=== PATIENT | female | born 1985 | race Caucasian/White ===

== ENCOUNTER 2018-08-12 09:44 | Inpatient (IN) ==
[2018-08-12] MEDS ORDERED: RINGER'S SOLUTION,LACTATED 1,000 ML IV ONE (09:52)
[2018-08-12] MEDS ORDERED: OXYTOCIN/DEXTROSE 5%-WATER 30 UNITS/500 ML BAG IV ONE (09:52)
[2018-08-12] MEDS ORDERED: ONDANSETRON HCL/PF 2 MG/ML VIAL IV PRN ×2 (09:52→19:02)
[2018-08-12] MEDS ORDERED: LIDOCAINE HCL 50 ML VIAL PERI PRN (09:52)
[2018-08-12] MEDS ORDERED: NALBUPHINE HCL 10 MG/ML AMPUL IV PRN ×2 (09:52)
[2018-08-12] MEDS: RINGER'S SOLUTION,LACTATED 1,000 ML IV PRN ×2 (10:17→19:38)
--- NOTE | 2018-08-12 16:22 | HP ---
Chief Complaint - Chief Complaint Date of Service: 08/12/18 Time of Service: 16:19 Chief Complaint: LOF History of Present Illness: The patient presented to the office complaining of loss of fluid. She ruptured her membranes at 0730 today. She reported clear LOF. She denied vb or ctx. Fetus is active. Medical History (Last Reviewed 04/16/18 @ 10:28 by Joyce Howard) 1, currently Onset Date: 01/22/18 Acute allergic rhinitis Onset Date: Unknown Asthma Onset Date: Unknown related to allergies/no hospitalizations Migraine Onset Date: Unknown no aura just sinus pressure/photophobia Seasonal allergies Onset Date: 01/22/18 Acne Onset Date: Unknown from Depo injections IBS (irritable bowel syndrome) Onset Date: Unknown Vaginitis Onset Date: 11/24/13 [place] teeth extracted Onset Date: ~11/2013 Surgical History: Surgical History (Last Reviewed 04/16/18 @ 10:28 by Joyce Howard) H/O breast augmentation Onset Date: ~2011 [place] - bilateral enlargement Family History: Family History (Last Reviewed 04/16/18 @ 10:28 by Joyce Howard) Aunt Diabetes maternal Mother Diabetes Social History: Preferred Language Chadian (Last Updated 08/12/18 @ 09:45 by Ligia Coley MD) No Social History Section defined Review Of Systems (GEN) - Review of Systems Misc: All systems neg except as marked Allergies/Adverse Reactions: Allergies Allergy/AdvReac Type Severity Reaction Status Date / Time No Known Allergies Allergy Verified 08/12/18 09:53 Home Medications: HOME MEDICATIONS albuterol sulfate HFA 90 mcg/actuation aerosol inhaler 2 puff IH Q3-6H PRN g 04/10/18 [Last Taken Unknown] cetirizine 10 mg tablet 10 mg PO DAILY 04/10/18 [Last Taken Unknown] vitamin,calcium,fqcpjkdv-hobv-affrm acid tablet 1 tab PO DAILY 04/10/18 [Last Taken Unknown] ascorbic acid (vitamin C) 500 mg tablet 500 mg PO DAILY 06/13/18 [Last Taken Unknown] breast pump See Dose Instructions .ROUTE .MEDSUPPLY #1 ea 06/13/18 [Last Taken Unknown] ferrous sulfate 325 mg (65 mg iron) tablet 325 mg PO DAILY tab 06/13/18 [Last Taken Unknown] docusate sodium 100 mg capsule 100 mg PO DAILY 07/11/18 [Last Taken Unknown] acetaminophen 325 mg capsule 325 mg PO Q6H PRN 07/22/18 [Last Taken Unknown] hydrocortisone 2.5 % topical cream with perineal applicator 1 applic SC QD-BID PRN 07/22/18 [Last Taken Unknown] Exam - Exam Vital Signs: Vital Signs - Last Taken Temp 36.4 C 08/12/18 10:10 Pulse 97 08/12/18 10:10 Resp 16 08/12/18 10:10 BP 118/76 08/12/18 10:10 Pulse Ox 98 08/12/18 10:10 Constitutional: Present: Alert, Oriented x3, Cooperative, No distress Respiratory: Present: chest non-tender, lungs clear, normal breath sounds Cardiovascular/Chest: Present: normal peripheral pulses, regular rate, rhythm, no murmur Abdomen: Present: Normal bowel sounds, soft, nontender, nondistended Extremity: Present: normal range of motion, non-tender, no calf tenderness Skin Exam: Present: normal color, warm/dry, no cyanosis Appearance: Present: appropriate appearance Eye contact: Present: cooperative Thoughts: Present: normal thought pattern Diagnostic Studies: Laboratory Results Blood Type O Negative 08/12/18 10:03 Antibody Screen Positive 08/12/18 10:03 Assessment/Plan - Narrative Narrative: 32 yo @ 38 6/7 weeks 1. PROM: pitocin for labor induction 2. GBS negative: prophylaxis not indicated
--- NOTE | 2018-08-12 16:33 | PN ---
Progesalireza Note - Interim Date: 08/12/18 Time: 16:32 Narrative: 08/12/18 16:32 The patient is requesting pain medication cvx 2/95/0 FHT cat 1 ctx q 2-3 mins Pitocin currently at 4 milliunits/min
[2018-08-12] MEDS ORDERED: BUPIVACAINE HCL/0.9 % NACL/PF 250 ML EP PRN (19:02)
[2018-08-12] MEDS ORDERED: NALOXONE HCL 1 MG/1 ML SYRG IV PRN (19:02)
--- NOTE | 2018-08-12 19:11 | ANES ---
Anesthesia Pre Procedure Eval Vitals/Labs: Last Vital Signs Temp 36.4 C 08/12/18 10:10 Pulse 97 08/12/18 10:10 Resp 16 08/12/18 10:10 BP 118/76 08/12/18 10:10 Pulse Ox 98 08/12/18 10:10 HOME MEDICATIONS albuterol sulfate HFA 90 mcg/actuation aerosol inhaler 2 puff IH Q3-6H PRN g 04/10/18 [Last Taken Unknown] cetirizine 10 mg tablet 10 mg PO DAILY 04/10/18 [Last Taken Unknown] vitamin,calcium,dkirfceo-qhat-jahqx acid tablet 1 tab PO DAILY 04/10/18 [Last Taken Unknown] ascorbic acid (vitamin C) 500 mg tablet 500 mg PO DAILY 06/13/18 [Last Taken Unknown] breast pump See Dose Instructions .ROUTE .MEDSUPPLY #1 ea 06/13/18 [Last Taken Unknown] ferrous sulfate 325 mg (65 mg iron) tablet 325 mg PO DAILY tab 06/13/18 [Last Taken Unknown] docusate sodium 100 mg capsule 100 mg PO DAILY 07/11/18 [Last Taken Unknown] acetaminophen 325 mg capsule 325 mg PO Q6H PRN 07/22/18 [Last Taken Unknown] hydrocortisone 2.5 % topical cream with perineal applicator 1 applic AR QD-BID PRN 07/22/18 [Last Taken Unknown] Allergies/Adverse Reactions: Allergies Allergy/AdvReac Type Severity Reaction Status Date / Time No Known Allergies Allergy Verified 08/12/18 09:53 - Planned Procedure Planned Procedure: labor epidural Medication List Reviewed:: Yes Allergies Verified: Yes Medical History (Last Reviewed 08/12/18 @ 19:11 by Vitaliy Garrido CRNA) 1, currently Onset Date: 01/22/18 Acute allergic rhinitis Onset Date: Unknown Asthma Onset Date: Unknown related to allergies/no hospitalizations Migraine Onset Date: Unknown no aura just sinus pressure/photophobia Seasonal allergies Onset Date: 01/22/18 Acne Onset Date: Unknown from Depo injections IBS (irritable bowel syndrome) Onset Date: Unknown Vaginitis Onset Date: 11/24/13 [place] teeth extracted Onset Date: ~11/2013 Surgical History (Last Reviewed 08/12/18 @ 19:11 by Vitaliy Garrido CRNA) H/O breast augmentation Onset Date: ~2011 [place] - bilateral enlargement Family History (Last Reviewed 08/12/18 @ 19:11 by Vitaliy Garrido CRNA) Aunt Diabetes maternal Mother Diabetes - Cardiovascular Tolerates Activity: Good Heart Sounds: S1 & S2, Regular - Anesthesia Assessment and Plan ASA Class: PS, II Anesthesia Type Plan: Epidural
[2018-08-12] MEDS ORDERED: BUPIVACAINE HCL/PF 30 ML VIAL EP SCH (19:15)
[2018-08-12] MEDS ORDERED: BUPIVACAINE HCL/PF 30 ML VIAL ONE (19:20)
--- NOTE | 2018-08-12 19:38 | ANES ---
Anesthesia Procedure Note Procedure Note: ANESTHESIA PROCEDURE NOTE Date of Procedure: 08/12/2018. Time of procedure: 1919. Performed by: Vitaliy Garrido CRNA Hand Patcher: None. Preprocedure diagnosis: Active labor. Post procedure diagnosis: Same. Procedure: Insertion of labor epidural. Indications: The patient is a 32 -year-old female in active labor requesting labor epidural for pain management. Findings: See below. Details of the procedure: The patient was placed in a sitting position. DuraPrep as well as Betadine swabs X3 was applied to the patient's back. Patient was then draped in a sterile fashion. Lidocaine 1% was infiltrated to the skin and subcutaneous tissues at the level of the L3-4 interspace. The epidural space was identified using a 18-gauge Tuohy needle with [id number] technique. Epidural catheter was inserted to a depth of 9 centimeters at skin. Negative test dose was elicited using 3 mL of 1.5% preservative-free lidocaine plus epinephrine 1 200,000. The epidural catheter was then taped and secured in place. A loading dose of 8 mL of 0.25% preservative-free bupivacaine was administered to the epidural catheter after negative aspiration for blood and CSF. EBL: Minimal. Fluids: N/A. Specimen: N/A. Post procedure condition: The patient tolerated the procedure well. No complications were noted. Thank you for this consultation. Vitaliy Garrido CRNA
--- NOTE | 2018-08-12 19:40 | ANES ---
Post Anesthesia Assessment - Vital Signs Vitals: Last Vital Signs Temp 36.7 C 08/12/18 19:39 Pulse 89 08/12/18 19:39 Resp 18 08/12/18 19:39 BP 133/80 08/12/18 19:39 Pulse Ox 98 08/12/18 19:39 Airway Patency: Normal - Mental Status Level Of Consciousness: Awake - N/V Assessment Nausea/Vomiting Presence: None Dehydration:: No
--- NOTE | 2018-08-13 00:27 | PN ---
Progess Note - Interim Date: 08/13/18 Time: 00:26 Narrative: 08/13/18 00:26 Pt is doing well Not pushing very effectively. Allow for spontaneous descent of the head
[2018-08-13] MEDS ORDERED: diphenhydrAMINE HCL 25 MG CAPSULE PO PRN (04:06)
[2018-08-13] MEDS ORDERED: OXYTOCIN/DEXTROSE 5%-WATER 30 UNITS/500 ML BAG IV ONE (04:06)
[2018-08-13] MEDS ORDERED: BENZOCAINE/MENTHOL 81 SPRAY CAN TP PRN (04:06)
[2018-08-13] MEDS ORDERED: SENNOSIDES 8.6 MG TABLET PO PRN (04:06)
[2018-08-13] MEDS ORDERED: BISACODYL 10 MG SUPP.RECT RC PRN (04:06)
[2018-08-13] MEDS ORDERED: oxyCODONE HCL/ACETAMINOPHEN 1 TAB TABLET PO PRN (04:06)
[2018-08-13] MEDS ORDERED: GLYCERIN/WITCH HAZEL LEAF 40 APPL BOX TP PRN (04:06)
[2018-08-13] MEDS ORDERED: HYDROCORTISONE 30 APPL TUBE TP PRN (04:06)
--- NOTE | 2018-08-13 04:13 | OR ---
Operative Report - Dictated Report Narrative: Date of delivery: 08/13/18 Time of delivery: 349 Gender: male weight: 3516 grams APGARS 8/9 The patient had PROM at 0730. She was started on pitocin as she was not in labor. She progressed to complete dilation. There was maternal exhaustion and a vacuum was used and vacuum use was discontinued after 3 pop offs. The patient continued to push as the head was at the perineum. There was intermittent bradycardia and thus a mediolateral episiotomy was cut to expedite delivery. The baby delivered in the WENCESLAO presentation. Cord clamping was delayed for 30 seconds. The placenta delivered by expression and appeared intact. The mediolateral episiotomy was repaired in the standard surgical fashion. Hemostasis was adequate. EBL: 200 mL Complications: none Definition: * The number of deliveries resulting in a live the patient experienced prior to current hospitalization * The previous delivery of live twins or any live multiple gestation is considered one live event. *If primagravida or nulliparous is documented select zero for the number of pr evious live births. Live births: 0
[2018-08-13] MEDS: IBUPROFEN 800 MG TABLET PO PRN ×3 (04:41→19:24)
[2018-08-13] MEDS: oxyCODONE HCL/ACETAMINOPHEN 1 TAB TABLET PO PRN ×3 (07:29→19:24)
[2018-08-13] MEDS: DOCUSATE SODIUM 100 MG CAPSULE PO SCH ×2 (08:50→21:18)
[2018-08-13] MEDS ORDERED: RHO(D) IMMUNE GLOBULIN 1,500 UNIT SYRINGE IM ONE (13:57)
--- NOTE | 2018-08-13 15:49 | PN ---
Oscar Note - Interim Date: 08/13/18 Time: 15:48 Narrative: 08/13/18 15:48 Called to bedside to examine the patient due to concerns she had regarding her bottom pulsating. Perineum examined and appears episiotomy appears intact. Swelling noted but no evidence of hematoma. Continue to monitor
[2018-08-13] MEDS: HYDROCORTISONE ACETATE 25 MG SUPP.RECT RC SCH (21:18)
[2018-08-14] MEDS: oxyCODONE HCL/ACETAMINOPHEN 1 TAB TABLET PO PRN ×4 (00:36→18:17)
[2018-08-14] MEDS: IBUPROFEN 800 MG TABLET PO PRN ×3 (04:23→18:17)
--- NOTE | 2018-08-14 10:28 | PN ---
Subjective - Date and Time Seen Date: 08/14/18 Time: 10:27 Subjective Narrative: Pt without complaints Objective Objective Narrative: See vital signs - Review of Systems Generalized/Overall Review: Reports: No Symptoms Reported Misc: All systems neg except as marked - Vitals Vitals: Last Vital Signs Temp 36.7 C 08/14/18 06:00 Pulse 84 08/14/18 06:00 Resp 18 08/14/18 06:00 BP 126/59 08/14/18 06:00 Pulse Ox 97 08/14/18 06:00 - Exam Constitutional: Present: Alert, Oriented x3, Cooperative, No distress Abdomen: Present: soft, nontender, nondistended - fundus is firm Extremity: Present: non-tender, no calf tenderness, pedal edema Skin Exam: Present: normal color, warm/dry, no cyanosis Appearance: Present: appropriate appearance Eye contact: Present: cooperative Thoughts: Present: normal thought pattern Cauti Physician Documentation - Urinary Catheter Management Urethral (Lopes) Urethral Indwelling: No Date of Insertion: 08/12/18 Time of Insertion: 20:05 Date of Removal: 08/12/18 Time of Removal: 23:20 Assessment/Plan Plan Narrative: PPD 1 s/p VAVD Doing well Discharge tomorrow
[2018-08-14] MEDS: DOCUSATE SODIUM 100 MG CAPSULE PO SCH ×2 (10:57→21:05)
[2018-08-14] MEDS: HYDROCORTISONE ACETATE 25 MG SUPP.RECT RC SCH ×2 (10:59→21:07)
[2018-08-15] MEDS: HYDROCORTISONE ACETATE 25 MG SUPP.RECT RC SCH ×2 (08:12→21:05)
[2018-08-15] MEDS: DOCUSATE SODIUM 100 MG CAPSULE PO SCH ×2 (08:12→21:02)
--- NOTE | 2018-08-15 09:16 | PN ---
Subjective - Date and Time Seen Date: 08/15/18 Time: 09:12 Subjective Narrative: Pt without complaints Objective Objective Narrative: See vital signs - Review of Systems Generalized/Overall Review: Reports: No Symptoms Reported Misc: All systems neg except as marked - Vitals Vitals: Last Vital Signs Temp 36.6 C 08/15/18 06:50 Pulse 72 08/15/18 06:50 Resp 18 08/15/18 06:50 BP 107/56 08/15/18 06:50 Pulse Ox 98 08/15/18 06:50 - Exam Constitutional: Present: Alert, Oriented x3, Cooperative, No distress Abdomen: Present: soft, nontender, nondistended - Fundus is firm Extremity: Present: non-tender, no calf tenderness, pedal edema Skin Exam: Present: normal color, warm/dry, no cyanosis Appearance: Present: appropriate appearance Eye contact: Present: cooperative Thoughts: Present: normal thought pattern Cauti Physician Documentation - Urinary Catheter Management Urethral (Lopes) Urethral Indwelling: No Date of Insertion: 08/12/18 Time of Insertion: 20:05 Date of Removal: 08/12/18 Time of Removal: 23:20 Assessment/Plan Plan Narrative: PPD 2 s/p VAVD Doing well Discharge today - Problems/Diagnosis (1) Vacuum extractor delivery, delivered Problem: Acute
[2018-08-15] MEDS: IBUPROFEN 800 MG TABLET PO PRN ×2 (10:50→19:32)
[2018-08-15] MEDS: oxyCODONE HCL/ACETAMINOPHEN 1 TAB TABLET PO PRN ×3 (10:50→22:33)
[2018-08-15 19:56] VITALS: BP 132/63
== END 2018-08-15 23:25 | disposition home or self-care (01) | DRG 807 ==
LOC: OB 09:44
PROVIDERS: ADMIT Obstetrics & Gynecology; ATTEND Obstetrics & Gynecology
CPT/HCPCS: 59025; 85460; 86850; 86870; 86900; J2790

== ENCOUNTER 2020-12-19 04:24 | Inpatient (IN) ==
[2020-12-19] MEDS ORDERED: ONDANSETRON 4 MG TAB.RAPDIS PO PRN (06:00)
[2020-12-19] MEDS ORDERED: RINGER'S SOLUTION,LACTATED 1,000 ML IV ONE (06:00)
[2020-12-19] MEDS ORDERED: OXYTOCIN/0.9 % SODIUM CHLORIDE 30 UNITS/500 ML BAG IV ONE ×2 (06:00→13:24)
[2020-12-19] MEDS ORDERED: RINGER'S SOLUTION,LACTATED 1,000 ML IV PRN (06:17)
[2020-12-19] MEDS ORDERED: BUTORPHANOL TARTRATE 2 MG/ML VIAL IV PRN ×2 (06:39)
[2020-12-19 09:33] LABS: Cocaine Ur Negative (NEGATIVE); Urine Barbiturate Negative (NEGATIVE); Urine Benzodiazepines Negative (NEGATIVE); Urine Opiates Negative (NEGATIVE); Urine PCP Negative (NEGATIVE); Urine THC Negative (NEGATIVE)
[2020-12-19] MEDS ORDERED: ONDANSETRON HCL/PF 2 MG/ML VIAL IV PRN (10:28)
[2020-12-19] MEDS ORDERED: NALOXONE HCL 1 MG/1 ML SYRG IV PRN (10:28)
[2020-12-19] MEDS ORDERED: BUPIVACAINE HCL/0.9 % NACL/PF 250 ML EP PRN (10:28)
[2020-12-19] MEDS ORDERED: fentaNYL CITRATE/PF 50 MCG/ML AMPUL IT SCH (10:30)
--- NOTE | 2020-12-19 10:57 | ANES ---
Anesthesia Pre Procedure Eval Vitals/Labs: Last Vital Signs Temp 36.5 C 12/19/20 06:27 Pulse 80 12/19/20 06:27 Resp 18 12/19/20 06:27 BP 110/57 12/19/20 06:27 Pulse Ox 97 12/19/20 06:27 HOME MEDICATIONS albuterol sulfate 90 mcg/actuation aerosol inhaler 2 puff IH Q3-6H PRN g 04/10/18 [Last Taken 11/27/20] cetirizine 10 mg tablet 10 mg PO DAILY 04/10/18 [Last Taken 12/19/20] prenat.vits,nathan,hob-jbej-jyljq 1 tab PO DAILY 04/10/18 [Last Taken 12/18/20] acetaminophen 325 mg capsule 325 mg PO Q6H PRN 07/22/18 [Last Taken Unknown] breast pump See Rx Instructions .ROUTE .MEDSUPPLY #1 ea 09/10/20 [Last Taken Unknown] ascorbate calcium (vitamin C) 500 mg tablet 500 mg PO BID 10/14/20 [Last Taken 12/17/20] ferrous sulfate 325 mg (65 mg iron) tablet 325 mg PO TID tab 10/27/20 [Last Taken 12/18/20] hydrocodone 5 mg-acetaminophen 325 mg tablet 1 tab PO Q6H PRN #30 tab 11/09/20 [Last Taken Unknown] hydrocortisone 2.5 % rectal cream with applicator 1 ea NC Q3H PRN 11/09/20 [Last Taken 12/18/20] Allergies/Adverse Reactions: Allergies Allergy/AdvReac Type Severity Reaction Status Date / Time No Known Allergies Allergy Verified 12/19/20 04:34 - Planned Procedure Planned Procedure: CSE for labor analgesia Medication List Reviewed:: Yes Allergies Verified: Yes Medical History (Last Reviewed 12/19/20 @ 10:55 by Dat Ho CRNA) Acute allergic rhinitis Onset Date: Unknown Asthma Onset Date: Unknown related to allergies/no hospitalizations Migraine Onset Date: Unknown no aura just sinus pressure/photophobia Seasonal allergies Onset Date: 01/22/18 Acne Onset Date: Unknown from Depo injections IBS (irritable bowel syndrome) Onset Date: Unknown Vaginitis Onset Date: 11/24/13 Surgical History (Last Reviewed 12/19/20 @ 10:55 by Dat Ho CRNA) H/O breast augmentation Onset Date: ~2011 [place] - bilateral enlargement [place] teeth extracted Onset Date: ~11/2013 Family History (Last Reviewed 12/19/20 @ 10:56 by Dat Ho CRNA) Aunt Diabetes maternal Mother Diabetes Father Alive and well - Family Anesthesia History Family History:: no untoward family reactions to anesthesia, no familial bleeding tendencies, no family history of clotting disorders, no family history of premature - Airway/Neck/Teeth Within Normal Limits:: Yes Teeth Condition: intact Neck Exam: full range of motion Mallampatti Score: 2 Thyromental (T-M) distance: > 6 cm Mandibulo Hyoid distance: > 3 cm - Respiratory Respiratory History: asthma Respiratory Physical: lungs clear Smoking Status: Never smoker Sleep Apnea currently treated: No Sleep Apnea by current assessment: No - Cardiovascular Tolerate Activity: Fair Heart Sounds: S1 & S2, Regular - Gastrointestinal NPO since: 2400 - Anesthesia Assessment and Plan ASA Class: PS, II, E Anesthesia Type Plan: Epidural - CSE for labor analgesia
--- NOTE | 2020-12-19 11:18 | ANES ---
Anesthesia Procedure Note Procedure Note: ANESTHESIA PROCEDURE NOTE Date of Procedure: 12/19/2020 Time of procedure: 10:55 AM. Performed by: AGAPITO Hayward CRNA, MSN Manager Farm: Mimi Villatoro RN. Preprocedure diagnosis: Active labor, labor pain. Post procedure diagnosis: Same. Procedure:Epidural for labor analgesia L3-4. Indications: Labor pain. Findings: See below. Details of the procedure: The patient was placed on the side of the bed in sitting positionand prepped with DuraPrep then draped in a sterile fashion. Lidocaine 1% was infiltrated to the skin and subcutaneous tissues at the level of the L3-4 interspace. An 18-gauge Touhy needle was used to approach the epidural space with loss of resistance technique. Once loss of resistance was achieved a 27-gauge spinal needle was passed through the epidural needle and CSF was contacted. After CSF returned, 20 mcg of fentanyl was injected in the spinal needle was removed the epidural catheter was then threaded approximately 4 cm in the epidural needle was removed. There was some resistance to threading the catheter, I dilated the epidural space with additional saline which facilitated the placement of the catheter. The catheter was taped in place and after careful aspiration 3 mL of 1.5% lidocaine with 1-200,000 epinephrine was injected without change in maternal heart rate or sensorium. EBL: Minimal. Fluids: N/A. Specimen: N/A. Post procedure condition: The patient tolerated the procedure well with good relief. No complications were noted. Thank you for this consultation. Dat Ho CRNA, ARNP, MSN
--- NOTE | 2020-12-19 11:18 | ANES ---
Post Anesthesia Discharge - Transfer of Care Transfer of Care handoff given to nurse: Yes - Discharge from PACU Discharge from PACU when meets criteria: Yes - Comfortable now
--- NOTE | 2020-12-19 11:28 | ANES ---
Post Anesthesia Assessment - Vital Signs Vitals: Last Vital Signs Temp 36.5 C 12/19/20 06:27 Pulse 80 12/19/20 06:27 Resp 18 12/19/20 06:27 BP 110/57 12/19/20 06:27 Pulse Ox 97 12/19/20 06:27 Airway Patency: Normal - Mental Status Level Of Consciousness: Awake, Alert, Appropriate - Pain Level Pain Score: 0 - N/V Assessment Nausea/Vomiting Presence: None Dehydration:: No
--- NOTE | 2020-12-19 12:25 | HP ---
Chief Complaint - Chief Complaint Date of Service: 12/19/20 Time of Service: 12:20 Chief Complaint: Labor History of Present Illness: 35 year old at 39w 3d who presented to labor and delivery in labor. She has an epidural in place. She reports regular ctx. Denies vb or lof. Fetus is active. Medical History (Last Reviewed 12/19/20 @ 12:21 by Ligia Leblanc MD) Acute allergic rhinitis Onset Date: Unknown Asthma Onset Date: Unknown related to allergies/no hospitalizations Migraine Onset Date: Unknown no aura just sinus pressure/photophobia Seasonal allergies Onset Date: 01/22/18 Acne Onset Date: Unknown from Depo injections IBS (irritable bowel syndrome) Onset Date: Unknown Vaginitis Onset Date: 11/24/13 Surgical History: Surgical History (Last Reviewed 12/19/20 @ 12:21 by Ligia Leblanc MD) H/O breast augmentation Onset Date: ~2011 [place] - bilateral enlargement [place] teeth extracted Onset Date: ~11/2013 Family History: Family History (Last Reviewed 12/19/20 @ 12:21 by Ligia Leblanc MD) Aunt Diabetes maternal Mother Diabetes Father Alive and well Social History: (Last Reviewed 12/19/20 @ 12:21 by Ligia Leblanc MD) Social History: adopted: No Marital status: household members: spouse number of children: 1 current occupational status: employed current occupation: banker Highest level of school completed/degree received: Bachelor's degree Sexually Active: Yes Service: No Tobacco: Smoking Status: Never smoker Alcohol: alcohol intake: former details: quit with Substance Use: substance use type: does not use Dietary Habits: caffeine: Yes Type: coffee daily servings of milk/calcium: 0-1 Pets: pets and animals: dog(s) Exercise: Physical activity type: other frequency: 1-2 times per week Review Of Systems (GEN) - Review of Systems Generalized/Overall Review: Present: No Symptoms Reported Misc: All systems neg except as marked Immunizations: IMMUNIZATION HX Immunizations Up to Date Yes History of Influenza Vaccine Yes Hx Pneumococcal Vaccination No Allergies/Adverse Reactions: Allergies Allergy/AdvReac Type Severity Reaction Status Date / Time No Known Allergies Allergy Verified 12/19/20 04:34 Home Medications: HOME MEDICATIONS albuterol sulfate 90 mcg/actuation aerosol inhaler 2 puff IH Q3-6H PRN g 04/10/18 [Last Taken 11/27/20] cetirizine 10 mg tablet 10 mg PO DAILY 04/10/18 [Last Taken 12/19/20] prenat.vits,nathan,szn-jvpj-jmtbh 1 tab PO DAILY 04/10/18 [Last Taken 12/18/20] acetaminophen 325 mg capsule 325 mg PO Q6H PRN 07/22/18 [Last Taken Unknown] breast pump See Rx Instructions .ROUTE .MEDSUPPLY #1 ea 09/10/20 [Last Taken Unknown] ascorbate calcium (vitamin C) 500 mg tablet 500 mg PO BID 10/14/20 [Last Taken 12/17/20] ferrous sulfate 325 mg (65 mg iron) tablet 325 mg PO TID tab 10/27/20 [Last Taken 12/18/20] hydrocodone 5 mg-acetaminophen 325 mg tablet 1 tab PO Q6H PRN #30 tab 11/09/20 [Last Taken Unknown] hydrocortisone 2.5 % rectal cream with applicator 1 ea DE Q3H PRN 11/09/20 [Last Taken 12/18/20] Exam - Exam Vital Signs: Vital Signs - Last Taken Temp 36.5 C 12/19/20 06:27 Pulse 80 12/19/20 06:27 Resp 18 12/19/20 06:27 BP 110/57 12/19/20 06:27 Pulse Ox 97 12/19/20 06:27 Constitutional: Present: Alert, Oriented x3, Cooperative, No distress ENT Exam: Present: hearing grossly normal Eye Exam: bilateral eye: normal inspection Neck: Present: normal inspection Back Exam: Present: normal inspection Respiratory: Present: lungs clear, normal breath sounds, no respiratory distress Cardiovascular/Chest: Present: regular rate, rhythm Abdomen: Present: soft, nontender, nondistended, no rebound tenderness /Rectal: Present: Other - 9/100/0 AROM for bloody fluid Extremity: Present: non-tender, no calf tenderness Skin Exam: Present: normal color, warm/dry, no cyanosis Neurologic: Present: alert, normal mood/affect, oriented x 3 Appearance: Present: appropriate appearance, appropriate insight, neat, no memory impairment Eye contact: Present: cooperative, good eye contact, normal speech Thoughts: Present: normal thought pattern Diagnostic Studies: Laboratory Results Urine Opiates Screen Negative (NEGATIVE) 12/19/20 08:57 Barbiturate Screen Negative (NEGATIVE) 12/19/20 08:57 Ur Phencyclidine Scrn Negative (NEGATIVE) 12/19/20 08:57 Urine Amphetamine Negative (NEGATIVE) 12/19/20 08:57 U Benzodiazepines Scrn Negative (NEGATIVE) 12/19/20 08:57 Urine Cocaine Screen Negative (NEGATIVE) 12/19/20 08:57 Urine Marijuana (THC) Negative (NEGATIVE) 12/19/20 08:57 Blood Type O Negative 12/19/20 06:15 Antibody Screen Positive 12/19/20 06:15 Assessment/Plan - Narrative Narrative: 35 year old at 39w 3d 1. Labor: augmented with pitocin and AROM 2. GBS negative: prophylaxis not indicated - Assessment/Plan (1) 39 weeks gestation of Problem: Acute (2) Normal Pap smear Problem: Acute (3) RhD negative Problem: Acute
[2020-12-19] MEDS ORDERED: HYDROCORTISONE 30 APPL TUBE TP PRN (13:24)
[2020-12-19] MEDS ORDERED: diphenhydrAMINE HCL 25 MG CAPSULE PO PRN (13:24)
[2020-12-19] MEDS ORDERED: BISACODYL 10 MG SUPP.RECT RC PRN (13:24)
[2020-12-19] MEDS ORDERED: HYDROcodone/ACETAMINOPHEN 1 EACH TABLET PO PRN (13:24)
[2020-12-19] MEDS ORDERED: SENNOSIDES 8.6 MG TABLET PO PRN (13:24)
[2020-12-19] MEDS ORDERED: BENZOCAINE/MENTHOL 81 SPRAY CAN TP PRN (13:24)
[2020-12-19] MEDS ORDERED: GLYCERIN/WITCH HAZEL LEAF 40 APPL BOX TP PRN (13:24)
--- NOTE | 2020-12-19 13:24 | OR ---
Operative Report - Dictated Report Narrative: Date of delivery: 12/19/2020 Time of delivery: 1308 Gender: female weight: 3645 grams APGARS: 8/9 Procedure: VAVD Description of the procedure: The patient is a 35 year old at 39w 3d who presented in labor. She was augmented with pitocin and AROM. She progressed to complete dilation. Heart tones were dropping in between contractions and went as low as 50s. For that reason a VAVD was performed. The patient was counseled regarding vacuum delivery and she gave verbal consent for vacuum delivery. The placenta delivered by expression, intact, and without difficulty. There was a small perineal abrasion that was hemostatic and thus not requiring repair. EBL: 100 mL Complications: none Specimens: cord blood History for MU Definition: * The number of deliveries resulting in a live the patient experienced prior to current hospitalization * The previous delivery of live twins or any live multiple gestation is considered one live event. *If primagravida or nulliparous is documented select zero for the number of previous live births. Live Events: 1
[2020-12-19] MEDS ORDERED: HYDROCORTISONE 2.5% PR PRN (13:25)
[2020-12-19] MEDS ORDERED: APPLICATOR PR PRN (13:25)
[2020-12-19] MEDS ORDERED: ALBUTEROL SULFATE 200 PUFF INHALER IH PRN (13:25)
[2020-12-19] MEDS: IBUPROFEN 800 MG TABLET PO PRN (17:22)
[2020-12-19] MEDS: DOCUSATE SODIUM 100 MG CAPSULE PO SCH (21:23)
[2020-12-19] MEDS ORDERED: RHO(D) IMMUNE GLOBULIN 1,500 UNIT SYRINGE IM ONE (21:30)
[2020-12-20] MEDS: IBUPROFEN 800 MG TABLET PO PRN ×3 (01:11→17:59)
[2020-12-20] MEDS: HYDROcodone/ACETAMINOPHEN 1 EACH TABLET PO PRN ×3 (01:11→18:00)
[2020-12-20] MEDS ORDERED: FLU VACC QS2020-21(6MOS UP)/PF 60 MCG/0.5 ML SYRINGE IM ONE (09:00)
[2020-12-20] MEDS ORDERED: LORATADINE 10 MG TABLET PO SCH (09:00)
[2020-12-20] MEDS: DOCUSATE SODIUM 100 MG CAPSULE PO SCH ×2 (09:57→20:56)
[2020-12-20] MEDS: PRENATAL VITS96/IRON FUM/FOLIC 1 TAB TABLET PO SCH (10:02)
--- NOTE | 2020-12-20 12:11 | PN ---
Subjective - Date and Time Seen Date: 12/20/20 Time: 12:09 Subjective Narrative: Patient without complaints Objective Objective Narrative: See vital signs - Review of Systems Generalized/Overall Review: Reports: No Symptoms Reported Misc: All systems neg except as marked - Vitals Vitals: Last Vital Signs Temp 36.4 C 12/20/20 06:43 Pulse 78 12/20/20 06:43 Resp 18 12/20/20 06:43 BP 91/51 12/20/20 06:43 Pulse Ox 98 12/20/20 06:43 - Exam Constitutional: Present: Alert, Oriented x3, Cooperative, No distress Extremity: Present: non-tender, no calf tenderness Skin Exam: Present: normal color, warm/dry, no cyanosis Neurologic: Present: alert, normal mood/affect, oriented x 3 Appearance: Present: appropriate appearance, appropriate insight, neat, no m arian impairment Eye contact: Present: cooperative, good eye contact, normal speech Thoughts: Present: normal thought pattern Cauti Physician Documentation - Urinary Catheter Management Urethral (Lopes) Urethral Indwelling: No Date of Insertion: 12/19/20 Time of Insertion: 11:35 Date of Removal: 12/19/20 Time of Removal: 12:55 Assessment/Plan Plan Narrative: PPD 1 s/p Doing well Discharge tomorrow - Problems/Diagnosis (1) 39 weeks gestation of Problem: Acute (2) Normal Pap smear Problem: Acute (3) RhD negative Problem: Acute (4) Vacuum extraction, delivered, current hospitalization Problem: Acute
[2020-12-21] MEDS: HYDROcodone/ACETAMINOPHEN 1 EACH TABLET PO PRN (02:43)
[2020-12-21] MEDS: IBUPROFEN 800 MG TABLET PO PRN (02:43)
[2020-12-21 07:08] VITALS: BP 108/59
--- NOTE | 2020-12-21 08:31 | PN ---
Subjective - Date and Time Seen Date: 12/21/20 Time: 08:29 Subjective Narrative: Patient without complaints Objective Objective Narrative: See vital signs - Review of Systems Generalized/Overall Review: Reports: No Symptoms Reported Misc: All systems neg except as marked - Vitals Vitals: Last Vital Signs Temp 36.9 C 12/21/20 06:30 Pulse 90 12/21/20 06:30 Resp 18 12/21/20 06:30 BP 108/59 12/21/20 06:30 Pulse Ox 95 12/21/20 06:30 - Exam Constitutional: Present: Alert, Oriented x3, Cooperative, No distress ENT Exam: Present: hearing grossly normal Abdomen: Present: soft, nontender, nondistended - fundus is firm Extremity: Present: non-tender, no calf tenderness Skin Exam: Present: normal color, warm/dry, no cyanosis Neurologic: Present: alert, normal mood/affect, oriented x 3 Appearance: Present: appropriate appearance, appropriate insight, neat, no memory impairment Eye contact: Present: cooperative, good eye contact, normal speech Thoughts: Present: normal thought pattern Cauti Physician Documentation - Urinary Catheter Management Urethral (Lopes) Urethral Indwelling: No Date of Insertion: 12/19/20 Time of Insertion: 11:35 Date of Removal: 12/19/20 Time of Removal: 12:55 Assessment/Plan Plan Narrative: PPD 2 s/p VAVD Doing well Discharge today - Problems/Diagnosis (1) 39 weeks gestation of Problem: Acute (2) Normal Pap smear Problem: Acute (3) RhD negative Problem: Acute (4) Vacuum extraction, delivered, current hospitalization Problem: Acute
[2020-12-21] MEDS ORDERED: LORATADINE 10 MG TABLET PO SCH (09:00)
[2020-12-21] MEDS: PRENATAL VITS96/IRON FUM/FOLIC 1 TAB TABLET PO SCH (09:26)
[2020-12-21] MEDS: DOCUSATE SODIUM 100 MG CAPSULE PO SCH (09:26)
--- NOTE | 2020-12-21 16:27 | DS ---
OB Discharge Summary (1) 39 weeks gestation of Status: Acute (2) Normal Pap smear Status: Acute (3) RhD negative Status: Acute (4) Vacuum extraction, delivered, current hospitalization Status: Acute Delivery Date: 12/19/20 Delivery Time: 13:08 :: 2 Para:: 2 Gestational weeks:: 39 Gestational days:: 3 Intrapartum Procedures: Anesthesia - Epidural, Vacuum-Assisted Procedures: None /OP Complications: No Complications Discharge Diagnosis: Term -Delivered - Discharge Information Date of Discharge: 12/21/20 Hospital Course: The patient presented in labor. The patient was delivered with a vacuum-assisted vaginal delivery without any complications. course was uncomplicated. Discharge Location: Home Disposition: Home self-care Condition: Good Activity on Discharge:: Activity as tolerated, Pelvic Rest Discharge Diet: General/regular food Additional Patient Instructions (free text): Yasmeen will follow up with Dr. Leblanc on Sunday January 24, 2021 at 9:00am. Continue to take your vitamins. Rest when your baby rests. Drink plenty of fluids, eat a lot of fruits and vegetables and lean meat. Vianca will follow up with Dr. Farley on November at 3:15 pm. Nurse your baby every 2-3 hours. Always use safe sleeping practices, always place your baby on her back in her own bed, no heavy blankets, pillows, stuffed animals, bumper pad, no co- sleeping. weight 8# 0.5 oz. Today's weight 7# 7.7 oz. She has passed her hearing test in both ears, her CHD and Metabolic Screen has been drawn. Her TCB this am 6.8 at 40 hours. Her blood type is O positive. Thank You for choosing [facility] for your special event. If you have any concerns, questions, please call the [facility] [phone], [facility] [phone] or [facility] [phone]. Complete Home Medications List: Complete Home Medication List: albuterol sulfate 90 mcg/actuation aerosol inhaler 2 puff IH Q3-6H PRN g 04/10/18 cetirizine 10 mg tablet 10 mg PO DAILY 04/10/18 prenat.vits,nathan,maf-uscs-obelg 1 tab PO DAILY 04/10/18 breast pump See Rx Instructions .ROUTE .MEDSUPPLY #1 ea 09/10/20 hydrocortisone 2.5 % rectal cream with applicator 1 ea ID Q3H PRN 11/09/20 - Plan Discharge to:: Home Comment:: Routine Discharge Instructions Follow up in office in:: Other - 4 weeks - [place] Information Weight (Grams): 3,645 Sex: Female Score 1 min: 8 Score 5 min: 9 Complications: None, Other Other Complications: vacuum assisted delivery
== END 2020-12-21 11:45 | disposition home or self-care (01) | DRG 807 ==
LOC: OBCLINIC 04:24 → OB 05:51
PROVIDERS: ADMIT Obstetrics & Gynecology; ATTEND Obstetrics & Gynecology